=== PATIENT | female | born 1955 | race Caucasian/White ===

== ENCOUNTER 2017-09-06 12:05 | Emergency (ER) | payer OTHER ==
[~2017-09-06] VITALS: Ht 154.9 cm; Wt 80.9 kg
[2017-09-06] MEDS ORDERED: IBUPROFEN 600 MG TABLET PO ONE (13:15)
[2017-09-06 15:02] VITALS: BP 129/71
== END 2017-09-06 15:14 | disposition home or self-care (01) ==
LOC: EMS 12:07
DX: S92.911A Unspecified fracture of right toe(s), initial encounter for closed fracture (principal); J45.909 Unspecified asthma, uncomplicated; E11.9 Type 2 diabetes mellitus without complications; I10 Essential (primary) hypertension; E03.9 Hypothyroidism, unspecified; W01.0XXA Fall on same level from slipping, tripping and stumbling without subsequent striking against object, initial encounter; Y93.89 Activity, other specified; Y92.89 Other specified places as the place of occurrence of the external cause; Y99.8 Other external cause status
CPT/HCPCS: 99284